=== PATIENT | male | born 1975 | race Caucasian/White ===

== ENCOUNTER 2016-09-13 13:46 | Day surgery (SDC) | payer OTHER ==
[2016-09-13] VITALS (8 sets, daily range): BP systolic 106–141; BP diastolic 75–88; PULSE 83–96; RESP 16–24; O2SAT 92–99
[~2016-09-13] VITALS: Ht 180.3 cm; Wt 117.4 kg
[~2016-09-13 13:46] MED LIST: ASPI-973 PO; CeFAZolin 2 Gm/50 mL D5W IV Premix IV ONE; Lactated Ringer's 1,000 ML IV ONE
[2016-09-13] MEDS ORDERED: fentaNYL-PF 50 mCg/mL 2 mL Inj ONE (13:47)
[2016-09-13] MEDS ORDERED: MetoCLOpramide 5 mg/mL 2 mL Inj ONE (13:47)
[2016-09-13] MEDS ORDERED: Dexamethasone 4 mg/mL Inj ONE (13:47)
[2016-09-13] MEDS ORDERED: Ondansetron 2 mg/mL 2 mL Inj ONE (13:47)
[2016-09-13] MEDS ORDERED: Propofol 10,000 mCg/mL 20 mL Inj ONE (13:47)
[2016-09-13] MEDS ORDERED: CeFAZolin 2 Gm/50 mL D5W Duplex Bag IV ONE (14:19)
[2016-09-13] MEDS ORDERED: HYDROcodone-APAP 5-325 mg Tablet PO PRN (15:05)
--- NOTE | 2016-09-13 15:14 | PCM.HPANE ---
Patient Data Surgeon Admitting Provider: Attending Provider:Meg Sharif MD Primary Care Physician:Jimena Other Provider:Karl Ellis Anesthesia Reason for Visit Spermatocele, Family Planning Ht/WT & BMI Height (Feet): 5 Height (Inches): 11 Weight (Kilograms): 119.29 Body Mass Index 36.00 Allergies Coded Allergies: No Known Allergies (Unverified , 09/13/16) Past Anesthesia History Anesthesia History: Denies:: Abnormal Airway, Anesthesia Reactions, Difficult Intubation, Fam Anesthesia Reaction Diabetes History Hx Diabetes?: No MRSA MRSA: No Medications Blood Thinner: Aspirin Hypertension Medication: No Home Meds Incl Beta Johnie: No Reported Medications Aspirin 81 Mg [id number] Mg PO DAILY Ref 0 09/10/16 History HEENT History: Denies:: Abnormal Airway Cataracts Difficult Intubation Dysphagia Glaucoma Hearing Problem Sinus Problem TMJ Hx of Heart Problems?: Yes Cardiovascular History: Positive for:: Irregular Heartbeat (tachy- saw powder blender at [facility] ) Denies:: AICD Heart Murmur Hypertension Pacemaker Peripheral Vascular Hx of Respiratory Problem?: Yes Respiratory History: Positive for:: Pneumonia (a few years) Use of C-PAP Machine Denies:: Asthma COPD Emphysema Oxygen Administration Tuberculosis Hx Neurologic Problems?: Yes Neurological History: Positive for:: Headaches Denies:: CVA Dizziness Multiple Sclerosis Parkinson's Disease Seizures TIA Hx of GI Problems?: No Gastrointestinal History: Denies:: Diverticulitis Gall Bladder Disease Gastroesphageal Reflux Gastrointestinal Bleeding Heartburn Hepatitis Hiatal Hernia Liver Disease Rectal Bleeding Hx of Problems?: No Genitourinary History: Denies:: Kidney Stones Urinary Tract Infection Male Hx: Positive for:: Scrotal Mass (right spermatocele current admission problem) Denies:: Prostate Problems Testicular Surgery Skin History: Denies:: History Skin Disorders? Pressure Ulcers Hx Musculoskeletal Problems?: Yes Musculoskeletal History: Positive for:: Back Injury (back pain- seeing ortho workup ) Denies:: Fibromyalgia Joint Replacement Musculoskeletal Trauma Myasthenia Gravis Osteoarthritis Hx of Psycho/Social Problems?: No Psycho Social History: Denies:: Anxiety Bipolar Disorder Hx Depression Hx Surgeries?: Yes (left knee surgery) Hx Any Other Health Problems?: Yes Other History: Denies:: Cancer Thyroid Disease History Blood Transfusions: Positive for:: Accept Blood Products? Denies:: Blood Transfusions Hx Diabetes: No Hx Alcohol Use: NoHx Substance Use: NoHave You Smoked inLast 12 mo: No Stop/Bang P-Blood Pressure: treated: No B- Body Mass Index > 35 kg/m2: Yes A- Age over 50: No N- Neck Large Circumference: No G- Gender Male: Yes Risk Assessment Category Category 1A: Patient has history of documented sleep apnea, and HAS NOT received any narcotic, sedative or anesthesia administration during this stay. Category 1B: Patient has history of documented sleep apnea, and HAS received any narcotic , sedative or anesthesia administration during this stay Category 2: Patient has SUSPECTED Obstructive Sleep Apnea, and HAS received any narcotic , sedative or anesthesia administration during this stay. Category 3: Patient has SUSPECTED Obstructive Sleep Apnea and HAS NOT received narcotic, sedative or anesthesia administration during this stay. Category 4: Outpatient in Procedural Areas with known sleep apnea or who screen positive for High Risk via the STOP/BANG questionnaire. Exam Exam General Appearance: Alert, Oriented X3, Cooperative, No Acute Distress HEENT/AIRWAY: MP 3 Lungs: Clear to Auscultation Heart: Exam Unremarkable Plan Impression Patient chart reviewed, patient interviewed and anesthestic plan with risks, benefits, and alternatives discussed, and informed consent obtained. ASA Physical Status: ASA2 Mod Systemic Disease Anesthetic Plan: GA Bene/Risks/Altern/Consents: Yes HP Complete Prior to Induction: Yes Te Dhillon MD Sep 13, 2016 07:19
[2016-09-13] MEDS ORDERED: Dexamethasone 4 mg/mL Inj IVPUSH PRN (15:15)
[2016-09-13] MEDS ORDERED: Phenylephrine 10,000 mCg/mL Inj IVPUSH PRN (15:15)
[2016-09-13] MEDS ORDERED: fentaNYL-PF 50 mCg/mL 2 mL Inj IVPUSH PRN (15:15)
[2016-09-13] MEDS ORDERED: Lactated Ringer's 1,000 ML IV SCH (15:15)
[2016-09-13] MEDS ORDERED: EPHEDrine Sulfate 50 mg/mL Inj IVPUSH PRN (15:15)
[2016-09-13] MEDS ORDERED: Lactated Ringer's 500 ML IV PRN (15:15)
[2016-09-13] MEDS ORDERED: MetoCLOpramide 5 mg/mL 2 mL Inj IVPUSH PRN (15:15)
[2016-09-13] MEDS ORDERED: Ondansetron 2 mg/mL 2 mL Inj IVPUSH PRN (15:15)
[2016-09-13] MEDS ORDERED: HYDROmorphone 1 mg/mL Inj IVPUSH PRN (15:15)
[2016-09-13] MEDS ORDERED: Bupivacaine-MPF 0.5% 30 mL Inj INFILTRATE ONE (15:25)
--- NOTE | 2016-09-13 15:54 | PCM.ANEP1 ---
Post Anesthesia Phase 1 PACU Phase 1 Assessment Vital Signs Vital Signs Date Time Temp Pulse Resp B/P Pulse Ox O2 Delivery O2 Flow Rate FiO2 09/13/16 15:45 36.4 93 23 136/85 97 Simple Mask 8 09/13/16 14:13 36 87 16 106/75 96 Room Air 09/13/16 14:07 CPAP/BIPAP Anesthetic Administered: GA Level of Alertness: Sleepy, easy to arouse REYNA's with Equal Strength: Yes Pain: No Nausea or Vomiting: No Oxygen Delivery: Simple Mask Lungs: Clear to Auscultation Dermatome Level: Full Sensation Te Dhillon MD Sep 13, 2016 15:54
--- NOTE | 2016-09-13 16:01 | PCM.ANEP2 ---
Post Anesthesia Evaluation ASA/CMS Post Anesthesia VS in Patient's Normal Range?: Yes Resp Stable; Airway Patent?: Yes CV Function & Hydration Stable: Yes Mental Status Recovered?: Yes Pain control Satisfactory?: Yes N/V Control Satisfactory?: Yes Te Dhillon MD Sep 13, 2016 16:01
--- NOTE | 2016-09-14 02:19 | OP ---
[address] [address] OPERATIVE REPORT PATIENT: MILAGROS ROMO : 1975 MR#: [id number] ADMIT: 09/13/2016 JOB ID: [id number] DATE OF SURGERY: 09/13/2016 SURGEON: Meg Sharif MD PREOPERATIVE DIAGNOSIS(ES): 1. Family planning. 2. Right spermatocele. POSTOPERATIVE DIAGNOSIS(ES): 1. Family planning. 2. Right spermatocele. PROCEDURES PERFORMED: 1. Bilateral vasectomy. 2. Right spermatocelectomy. BRASS PICKLER: None. FINDINGS: 1. Two spermatoceles on the right caput and body, approximately 3 cm. 2. Bilateral vas deferens. ANESTHESIA: General plus local. ESTIMATED BLOOD LOSS: Less than 5 mL. DRAINS: None. SPECIMEN: 1. Right spermatocele. 2. Bilateral vas deferens. COMPLICATIONS: None. CONDITION: Stable. INDICATION FOR PROCEDURE: The patient is a 41-year-old gentleman who wishes to undergo the aforementioned procedure after having been counseled to his options. DESCRIPTION OF PROCEDURE: After informed consent was obtained, the patient was taken to the operating room. A time-out was performed identifying correct patient, surgical site, and procedure. General anesthesia was smoothly induced. The patient was placed in supine position. All pressure points were identified and appropriately padded. A midline incision approximately 2.5 cm long was made with a 15 blade. Bovie electrocautery was used to incise dartos fascia. The right testicle was delivered through the incision, and the layers of tunica incised sharply. The spermatocele was then dissected down to its base and excised. It was passed off to Pathology as spermatocele sacs. Next the right vas was delivered through the incision with penetrating towel clamps, and 2-0 Vicryl was used at the proximal and distal ends. Intervening segment was excised and passed off the table to Pathology. The left vas deferens was treated in similar fashion. The ends of the vas deferens were then cauterized and replaced back in their usual position. Dartos was closed with 3-0 chromic in running fashion. The skin was closed with 3-0 chromic in running fashion. Marcaine was placed inside the incision, bacitracin over the wound, Kerlix, fluff gauze, and scrotal support was placed to the patient's genitals and buttocks. The patient was then reversed from general anesthesia and taken to PACU in good and stable condition. MARCY
--- NOTE | 2016-09-15 13:47 | PATH ---
SURGICAL PATHOLOGY Attending Physician:Meg Sharif, CASE STATUS: Signed Out PATIENT NAME: MILAGROS ROMO PID: [id number] : 1975 DATE COLLECTED:09/13/2016 22:50 SPECIMEN: 1: Spermatocele 2: Vas Deferens, Sterilization CLINICAL HISTORY: RIGHT SPERMATOCELE, FAMILY PLANNING 1. RIGHT SPERMATOCELE 2. BILATERAL VAS DEFERENS FINAL DIAGNOSIS: 1. Specimen Designated Right Spermatocele: Spermatocele. 2. Segments of Bilateral Vas Deferens (Sterilization Procedure): No significant pathologic change. ICD10 N43.40 GROSS DESCRIPTION: The specimens are received in formalin, labeled with the patient's name, and sublabeled as the following: (1) right spermatocel; (2) bilateral vas deferens. (1) The specimen consists of a translucent fluid-filled membranous cyst (1.7 x 1.5 x 0.9 cm). The lining is shiny and flat with no excrescences identified. The wall is up to 0.1 cm thick. Section code: (1A) cyst, severely sectioned. Specimen entirely submitted. (2) The specimen consists of 2 fragments of noe-white rubbery semi-translucent tissue (0.3 x 0.2 x 0.2 cm and 0.7 x 0.2 x 0.2 cm). Section code: (2A) intact tissue fragments. Specimen entirely submitted intact to be further sliced upon embedding. 09/14/16 ICD-9 CODES: CPT CODES: 1: 54502 2: 71385 Electronically Signed Out Ediwn Li MD [facility] [address], [place] [address] Technical component performed at [facility], [address] [place] [address] Ave[address], [place], [address]
== END 2016-09-13 23:59 | disposition home or self-care (01) ==
LOC: SAS 13:46
PROVIDERS: ATTEND Urology
DX: N43.40 Spermatocele of epididymis, unspecified (principal); Z30.09 Encounter for other general counseling and advice on contraception; N43.41 Spermatocele of epididymis, single; Z30.2 Encounter for sterilization
CPT/HCPCS: 54840; 55250; 88302; 88304; J0690; J1100; J2250; J2405; J2765; J7120